=== PATIENT | female | born 1955 | race Two or more races ===

== ENCOUNTER 2020-04-30 11:30 | Outpatient (RCR) | payer MEDICARE, MEDICAID, SELFPAY ==
[2020-04-02 12:37] VITALS: BMI 19.3
--- NOTE | 2020-04-02 12:49 | PC.ADMIT ---
Patient is a 64 year old female who self referred to PHP as she attended PHP in the past and found it helpful. Patient is struggling with depression sxs and increased anxiety with panic attacks d/t isolating because of the pandemic. As a result patient has not been able to work or enjoy the things she used to do such as spend time with friends or visit her daughter or her new grandchild. Patient is waiting for the COVID Vaccine and has a new PCP appointment in April to discuss. Patient denied SI and stated she would never do that. Patient gave verbal permission to email her a copy of her safety plan. Patient presents with depressed mood and anxious affect. Getting used to the new telehealth platform as she stated the last time she was here was when we met in person. Medication reconciled with patient and patient's pharmacy. Patient reports taking medications as prescribed.
--- NOTE | 2020-04-02 16:33 | HO.PS.ADMBH ---
HPI Chief Complaint: depression Sources of Information: patient interviewed and chart reviewed HPI Narrative: 64 yo female, hx of recurrent major depression, presents with increased symptoms of depression and anxiety. Pt identifies precipitant as the pandemic. Reports she has become more fearful of getting COVID and had to leave her work. The quarantine I can no longer stand . Difficulty with isolation which has increased sx of amotivation. Restrictions of the mask have precipitated panic and asthma sx. Pt has a long hx of depression. Previous [facility] PHP admissions where her main coping skills were to not isolate, engage with other and increase activity. The pandemic she reports interfered with all of these and loss of social connection has intensified sx. Of note, one positive event was the of her first grandchild, Elizabeth, on 03/29. She is motivated to manage sx so she may visit him in [place] as soon as possible. Reports a decrease in sleep-she was up all night last night, appetite is unchanged, denies SI plan or intent, no manic sx, denies AH/VH. Daughter has been active in helping pt to trial different activities on zoom, however, pt is not interested currently Past Psychiatric History: IP: Denies OP: Alycia Mccormick-private practice; Dr. Lakhani-psychopharmacology PHP: [facility] 2017, 2018 Trials: several, no current interest in medicine changes. Medical Evaluation Reviewed: Yes [facility] Medical History (Updated 04/02/20 @ 16:49 by Stacy Noe APRN) Asthma Bilateral hearing loss GERD (gastroesophageal reflux disease) Osteoporosis Recurrent major depression-severe Narrative: To attend PT for frozen shoulder. Recently passed five kidney stones Surgical History (Updated 04/02/20 @ 12:32 by Flavia Hogue RN) H/O: hysterectomy Family History: anxiety, PTSD, Depression Social History: lives with her cat. Currently unemployed-will reach out to [facility] for resources Substance History: Denies Trauma History: Yes Diagnostics Vital Signs (24Hr): Body Mass Index 19.3 Meds/Allergies Allergies Allergies Allergy/AdvReac Type Severity Reaction Status Date / Time NSAIDS (Non-Steroidal Allergy Unknown GERD Unverified 11/08/19 17:17 Anti-Inflamma [NSAIDS (NON-STEROIDAL ANTI-INFLAMMA] Penicillins [PENICILLINS] Allergy Unknown HIVES Unverified 11/08/19 17:17 Mental Status Exam Mental Status Exam Patient Appearance: Appropriate Patient Orientation: Person, Place, Time and Situation Level of Consciousness: Awake and Alert Patient Behavior: Appropriate, Talkative, Cooperative, Restless, Anxious, Fatigued and Distractible Mood Description: Depressed and Anxious Affect Description: Flat Patient Cognition Impaired: No Ability to Follow Directions: Good Speech Pattern: Spontaneous Speech Memory Description: Intact Hallucinations: None Delusions: Not Present Thought Process: Intact Thought Content: positive for Intact Depressive Symptoms: Increased Anxiety, Insomnia, Diff. Making Decisions, Muscle Tension, Difficulty Sleeping, Muscle Pain, Loss of Int. in Activity, Hopelessness, Isolating-Friends/Family, Unhappiness, Increased Fatigue, Thoughts of /Suicide (denies SI plan or intent), Low Self Esteem, Loss of Energy and Difficulty Concentrating Abnormal Motor Activity Signs and Symptoms: Restlessness Judgement: Good Assessment & Plan Assessment & Plan (1) Recurrent major depression-severe: Status: Acute Code(s): F33.2 - Major depressive disorder, recurrent severe without psychotic features Assessment and Plan: -continue current regime Certification I certify that partial hospital treatment is medically necessary due to the symptoms and problems resulting from the patient's mental illness and the failure to treat the patient at the partial hospital level of care would likely result in the patient requiring inpatient psychiatric care which could not be prevented at a less intensive level of care. Telehealth Telehealth Location of provider rendering services: practice address Location of patient: address on file Patient Identification confirmed using: Name, : Yes Telehealth method: video Patient verbally consented to treatment: Yes Patient verbally consented to billing insurance company: Yes Patient informed of any privacy concerns related to visit: Yes Time spent with patient (mins): 35
--- NOTE | 2020-04-03 08:07 | PC.NURSE ---
Pt called and said she will not be able to attend PHP today. She said she has an abscessed tooth and was able to get a dentist appt today at 10:15. She said she will be in tomorrow.
--- NOTE | 2020-04-04 12:28 | PC.NURSE ---
The client called because she can not come today because she had dental surgery yesterday and is in a tremendous amount of pain.
--- NOTE | 2020-04-10 12:29 | HO.PHPPROGNO ---
Subjective Subjective Date of Service: 04/15/20 Reason For Visit: depression Interim History: Suze reports feeling slightly less depressed. She reports some difficulty sleeping for the past month which she attributes to increased depression and racing thoughts due to anxious mood. She reports PHP has been helpful in that she feels less isolated. She also plans to meet her only grandchild soon, which she had not been able to do due to COVID. She has been on same psychotropic medications for some years. She has been taking split dose of prozac. She states this was recommended by her OP psychiatrist to help with anxiety in evening but does not seem to have any effect. We did discuss trying to take full dose Prozac in morning- no pharmacological reason to split dose, and certainly difference that pt has noted. We discussed adding melatonin for sleep- however, pt worried about side effects with any changes in medications. She denied SI/HI. She reports appetite is fair. Medication Compliance: Yes Side effects from medications: No Attending Groups: Yes Mental Status Exam Mental Status Exam Patient Appearance: Appropriate Patient Orientation: Person, Place, Time and Situation Level of Consciousness: Awake and Alert Patient Behavior: Appropriate, Talkative, Cooperative, Restless, Anxious, Fatigued and Distractible Mood Description: Depressed and Anxious Affect Description: Flat Patient Cognition Impaired: No Ability to Follow Directions: Good Speech Pattern: Spontaneous Speech Memory Description: Intact Diagnostics Vital Signs (24Hr): Body Mass Index 19.3 Assessment & Plan Assessment & Plan (1) Recurrent major depression-severe: Status: Acute Code(s): F33.2 - Major depressive disorder, recurrent severe without psychotic features Assessment and Plan: -continue current regime Certification I certify that partial hospital treatment is medically necessary due to the symptoms and problems resulting from the patient's mental illness and the failure to treat the patient at the partial hospital level of care would likely result in the patient requiring inpatient psychiatric care which could not be prevented at a less intensive level of care. Greater than 50% of the session was spent on counseling and/or coordination of care Discharge Plan Discharge Attending provider: Erick Bowling Medications: No Action fluoxetine 10 mg Capsule 10 mg PO BEDTIME RF: 0 lorazepam 1 mg Tablet 1 mg PO DAILY PRN (Reason: Anxiety) RF: 0 albuterol sulfate 90 mcg/actuation Hfa Aerosol Inhaler 2 puff INHALATION Q6H PRN (Reason: Shortness Of Breath) RF: 0 fluoxetine 20 mg Capsule 20 mg PO DAILY RF: 0 bupropion HCl 150 mg Tablet Extended Release 24 Hr 150 mg PO QAM RF: 0 cholecalciferol (vitamin D3) [Vitamin D3] 50 mcg (2,000 unit) Tablet 50 mcg PO DAILY RF: 0 Breo Ellipta 200-25 mcg/dose Blister With Device 1 inh INHALATION DAILY RF: 0 Telehealth Telehealth Location of provider rendering services: practice address Location of patient: address on file Patient Identification confirmed using: Name, : Yes Telehealth method: video Patient verbally consented to treatment: Yes Patient verbally consented to billing insurance company: Yes Patient informed of any privacy concerns related to visit: Yes Time spent with patient (mins): 35
--- NOTE | 2020-04-16 12:13 | PC.NURSE ---
Pt called to report that the first 2 groups were very intense and negative. She felt very triggered by the other patients' suffering . She reported she was safe but she would like to take the day to take care of herself. Asked assigned clinician to reach out to her later in the day. She will return to groups tomorrow.
--- NOTE | 2020-04-16 13:08 | PC.NURSE ---
Pt called staff (Evita Alejandro) to let us know that she is in need of break and will not be returning to group today. I called her and spoke to her after the 3rd group. She said she is okay, and safe. She said she recognized that she was getting overwhelmed with the negativity from peer in the group, and that she had a reaction to their unwillingness to receive feedback or help. She questioned whether some of her peers in group really want to change. We discussed possible ways to cope with and/or communicate these thoughts in the group. Pt was easily able to identify tasks she has planned for today and coping skills, and was able to use some humor.
--- NOTE | 2020-04-16 13:10 | PC.NURSE ---
Patient called to say she needed a break from groups as she stated the first 2 groups were intense and when she tried to be positive other group members continued to be negative and she did not feel others had a good response towards her because of this. Patient stated she may show up for the last group at 1:00 however she may not depending how she is feeling. Patient denied any suicidal thoughts or thoughts to kill or harm herself. Patient ended our call to answer another call from a [employer] number as she thought it was one of the Clinician's calling her back as she left them an earlier message. Clinicians and Evita Hunter the pilot supervisor are aware. Clinician's will reach out to patient later.
--- NOTE | 2020-04-17 20:08 | HO.PHPPROGNO ---
Subjective Subjective Date of Service: 04/17/20 Reason For Visit: depression Interim History: Reports regime to be effective and without SE. Appetite is OK-some missed meals due to being engaged in other activities. Slept seven hours last night the entire night-however, has noticed that she bites her nails in her sleep. Discussed using moisturizing gloves to deter that sx while sleeping. Believes this sx is based in fear from the forced isolation of quarantine. Will attend [facility] until 04/30, then travel to meet her new grandchild. 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 Medication Compliance: Yes Side effects from medications: No Attending Groups: Yes Review of Systems Psychiatric: Reports anxiety Mental Status Exam Mental Status Exam Patient Appearance: Appropriate Patient Orientation: Person, Place, Time and Situation Level of Consciousness: Awake and Alert Patient Behavior: Appropriate Mood Description: Anxious Affect Description: Flat Patient Cognition Impaired: No Ability to Follow Directions: Good Speech Pattern: Spontaneous Speech Hallucinations: None Delusions: Not Present Thought Process: Intact Thought Content: positive for Suicidal Ideation (denies SI plan or intent) Depressive Symptoms: Increased Anxiety, Difficulty Sleeping and Changes in Appetite Judgement: Good Diagnostics Vital Signs (24Hr): Body Mass Index 19.3 Assessment & Plan Assessment & Plan (1) Recurrent major depression-severe: Status: Acute Code(s): F33.2 - Major depressive disorder, recurrent severe without psychotic features Assessment and Plan: -Continue current plan of care. Patient educated on: therapeutic strategies Informed Consent: understands and further education needed Certification I certify that partial hospital treatment is medically necessary due to the symptoms and problems resulting from the patient's mental illness and the failure to treat the patient at the partial hospital level of care would likely result in the patient requiring inpatient psychiatric care which could not be prevented at a less intensive level of care. Greater than 50% of the session was spent on counseling and/or coordination of care Discharge Plan Discharge Attending provider: Erick Bowling Medications: No Action fluoxetine 10 mg Capsule 10 mg PO BEDTIME RF: 0 lorazepam 1 mg Tablet 1 mg PO DAILY PRN (Reason: Anxiety) RF: 0 albuterol sulfate 90 mcg/actuation Hfa Aerosol Inhaler 2 puff INHALATION Q6H PRN (Reason: Shortness Of Breath) RF: 0 fluoxetine 20 mg Capsule 20 mg PO DAILY RF: 0 bupropion HCl 150 mg Tablet Extended Release 24 Hr 150 mg PO QAM RF: 0 cholecalciferol (vitamin D3) [Vitamin D3] 50 mcg (2,000 unit) Tablet 50 mcg PO DAILY RF: 0 Breo Ellipta 200-25 mcg/dose Blister With Device 1 inh INHALATION DAILY RF: 0 Telehealth Telehealth Location of provider rendering services: practice address Location of patient: address on file Patient Identification confirmed using: Name, : Yes Telehealth method: video Patient verbally consented to treatment: Yes Patient verbally consented to billing insurance company: Yes Patient informed of any privacy concerns related to visit: Yes Time spent with patient (mins): 15
--- NOTE | 2020-04-24 14:50 | HO.PHPPROGNO ---
Subjective Subjective Date of Service: 04/24/20 Reason For Visit: depression Interim History: Pt somewhat anxious, especially around any changes to medications. She denies suicidal or homicidal ideation. She reports sleep has been better in that she is not waking up so frequently. She reports depression and anxious mood always there. She reports finding groups helpful. Review of Systems Psychiatric: Reports anxiety Mental Status Exam Mental Status Exam Patient Appearance: Well Grooomed and Appropriate Patient Orientation: Person, Place, Time and Situation Level of Consciousness: Awake and Alert Patient Behavior: Appropriate and Cooperative Mood Description: Anxious Affect Description: Anxious Patient Cognition Impaired: No Ability to Follow Directions: Good Speech Pattern: Clear, Appropriate and Spontaneous Speech Memory Description: Intact Hallucinations: None Delusions: Not Present Thought Process: Linear Thought Content: positive for Intact Judgement: Fair Diagnostics Vital Signs (24Hr): Body Mass Index 19.3 Assessment & Plan Assessment & Plan (1) Recurrent major depression-severe: Status: Acute Code(s): F33.2 - Major depressive disorder, recurrent severe without psychotic features Assessment and Plan: -Continue current plan of care. Certification I certify that partial hospital treatment is medically necessary due to the symptoms and problems resulting from the patient's mental illness and the failure to treat the patient at the partial hospital level of care would likely result in the patient requiring inpatient psychiatric care which could not be prevented at a less intensive level of care. Greater than 50% of the session was spent on counseling and/or coordination of care Discharge Plan Discharge Attending provider: Erick Bowling Medications: No Action fluoxetine 10 mg Capsule 10 mg PO BEDTIME RF: 0 lorazepam 1 mg Tablet 1 mg PO DAILY PRN (Reason: Anxiety) RF: 0 albuterol sulfate 90 mcg/actuation Hfa Aerosol Inhaler 2 puff INHALATION Q6H PRN (Reason: Shortness Of Breath) RF: 0 fluoxetine 20 mg Capsule 20 mg PO DAILY RF: 0 bupropion HCl 150 mg Tablet Extended Release 24 Hr 150 mg PO QAM RF: 0 cholecalciferol (vitamin D3) [Vitamin D3] 50 mcg (2,000 unit) Tablet 50 mcg PO DAILY RF: 0 Breo Ellipta 200-25 mcg/dose Blister With Device 1 inh INHALATION DAILY RF: 0 Telehealth Telehealth Location of provider rendering services: practice address Location of patient: address on file Patient Identification confirmed using: Name, : Yes Telehealth method: video Patient verbally consented to treatment: Yes Patient verbally consented to billing insurance company: Yes Patient informed of any privacy concerns related to visit: Yes Time spent with patient (mins): 15
--- NOTE | 2020-04-30 16:11 | PC.NURSE ---
I called and left a message for pt's therapist at [facility], Alycia Mccormick, informing her about pt's clinical status and discharge from [facility].
== END 2020-04-30 23:55 | disposition home or self-care (01) ==
LOC: HO.PHPA 11:30
PROVIDERS: Visit Provider Psychiatry & Neurology Psychiatry
DX: F33.2 Major depressive disorder, recurrent severe without psychotic features (principal); Z79.899 Other long term (current) drug therapy
CPT/HCPCS: 90791; 90853

== ENCOUNTER 2021-12-17 11:53 | Outpatient (REF) | payer MEDICARE, MEDICAID, SELFPAY ==
--- NOTE | 2021-12-18 12:51 | MHC.AU.AHA ---
Adult Audiological Evaluation Date of Visit: 12/17/21 Reason for Appointment: History of asymmetrical hearing loss. Her left ear has had profound sensorineural hearing loss since childhood. She arrives today to determine if there has been a change in hearing. Previous Hearing Test Results: At this clinic on 11/13/2018: Right ear has mild to moderately-severe sensorineural hearing loss. Left ear has profound sensorineural hearing loss, with no measurable thresholds. Hearing Instrument History- Right Ear: Phonak Bolero B90-M, #[id number] Battery Size: 312 Repair Warranty: 02/07/2020 Loss and Damage Warranty: 02/07/2020 Dispensed By: [facility] Date of Fittin12/23/2016 Hearing Instrument History- Left Ear: Phonak CROS B-312, #[id number] Battery Size: 312 Warranty: 02/06/2018 Loss and Damage Warranty: 02/06/2018 Dispensed By: [facility] Date of Fittin12/23/2016 Otoscopy: Right Ear: Unremarkable Left Ear: Unremarkable Tympanometry: Tympanometry performed due to: To assess integrity of the middle ear system Right Ear: Normal Middle Ear System (Type A) Left Ear: Normal Middle Ear System (Type A) Hearing Evaluation: Transducer(s) Used: Insert Earphones Method: Conventional Audiometry Stimuli Used: Pure Tones Right Ear: Description of Hearing: Mild to moderately-severe sensorineural hearing loss. Speech recognition threshold (SRT) is 35 dBHL. Word discrimination at 70 dBHL (MCL) is 100%. Left Ear: Description of Hearing: Profound sensorineural hearing loss. Could not test SRT or word discrimination in the left ear due to extent of hearing loss. Most Comfortable Level (MCL): 70 dBHL in the right ear. Could not test in the left ear. Comparison: Thresholds in the right ear have slightly decreased. Recommendations: Audiological re-evaluation in one year. See Hearing Aid Evaluation report for more information. Diagnosis: H90.3 Bilateral Sensorineural Hearing Loss Signature: Provider: Good Neely, [facility]
--- NOTE | 2021-12-18 12:54 | MHC.AU.HAS ---
Hearing Aid Evaluation Date of Visit: 12/17/21 Historical Information: Description of Hearing: Right: Mild to moderately-severe sensorineural hearing loss, Left: Profound sensorineural hearing loss Current personal amplification information, if applicable: Right: Phonak Bolero B90-M, Left: Phonak CROS B-312. Obtained 12/23/2016. Summary: Patient was seen today for audiological re-evaluation (see separate report for details). Maintenance was performed on her current hearing instruments. No programming changes made to the instruments today. Patient is working with [facility] ([facility] She will need a set of hearing instruments that can support her auditory needs in everyday life, as well as the workforce. Hearing aid options were discussed. Her new instruments will have Bluetooth, so that they have the ability to be paired to certain Bluetooth-compatible devices, such as phones, tablets, or computers. There will also be a T-coil. In the future, depending on the nature of the workplace, a Phonak Raciel On iN could be beneficial. The Raciel On iN is a device that can be used as a microphone (for meetings, lectures, noisy places, etc) or it can be used to stream audio from non-Bluetooth compatible devices, such as many office phones. If the patient feels a Phonak Raciel On iN would be beneficial to a future workplace, she could discuss this with [facility]. She would benefit from a caption phone. UEN Pimentel CCC-A will be filling out a certification form with [employer]. [facility] will then contact the [facility] directly. Hearing Aid Prescription: Based on the individual?s shared listening needs, communication environments, dexterity, desire for connectivity, and personal preferences, the following prescription for amplification has been made: Right ear: Finishing Range Operator: Phonak Model: Audeo P70-13T Battery Size: 13 Color: P1 Global Security Architect: 0M Left ear: Finishing Range Operator: Phonak Model: CROS P-13 Battery Size: 13 Color: P1 Global Security Architect: Size 0 CROS tube Action Taken/Action Needed: Medical Clearance to be requested from PCP/ENT Hearing Instrument Fitting to be scheduled when materials arrive Primary Diagnosis: H90.3 Bilateral Sensorineural Hearing Loss Signature: Provider: Good Neely, JEANA
--- NOTE | 2021-12-18 12:55 | MHC.AU.MED ---
Medical Clearance for Hearing Instrumentation Date: 12/18/21 Patient Name: Maren Soto Date of : 1955 Referring Provider: JOHN Vaughn We have seen your patient on 12/18/21 and have determined that they are a candidate for amplification (See accompanying report). Specifically, they would benefit from: Hearing aid use in right ear, CROS use in left ear There is a statute that addresses Medical Evaluation Requirements prior to fitting a patient with a hearing aid. According to [place] statute 265 CMR:6.03(1), (a) General. Except as provided in 265 CMR 6.03(1)(b), a hearing healthcare practitioner shall not sell a hearing aid unless the prospective user has presented to the hearing healthcare practitioner a written statement signed by a licensed physician that states that the patient's hearing loss has been medically evaluated and the patient may be considered a candidate for a hearing aid. The medical evaluation must have taken place within the preceding six months. Please note: Due to the [place] Statute referenced above, we cannot accept a signature other than that of a licensed physician. KAROL and PA signatures cannot be accepted. I am in agreement with the above recommendation. There is no medical contraindication for hearing instrumentation. Physician Signature Date Physician Name (Printed)
== END 2021-12-17 11:54 | disposition home or self-care (01) ==
LOC: HO.SH 11:53
PROVIDERS: Visit Provider Physician Assistant Medical
DX: Z01.118 Encounter for examination of ears and hearing with other abnormal findings (principal); Z46.1 Encounter for fitting and adjustment of hearing aid; H90.3 Sensorineural hearing loss, bilateral
CPT/HCPCS: 92557; 92567; 92591

== ENCOUNTER 2022-01-19 08:49 | Outpatient (REF) | payer MEDICARE, MEDICAID, SELFPAY | END 2022-01-19 08:50 | disposition home or self-care (01) | LOC: HO.HAP 08:49 | PROVIDERS: Visit Provider Internal Medicine | DX: Z46.1 Encounter for fitting and adjustment of hearing aid (principal); H90.3 Sensorineural hearing loss, bilateral | CPT/HCPCS: V5011; V5020; V5221; V5240; V5266 ==

== ENCOUNTER 2022-02-02 12:15 | Outpatient (REF) | payer MEDICARE, MEDICAID, SELFPAY | END 2022-02-02 12:16 | disposition home or self-care (01) | LOC: HO.HAP 12:15 | PROVIDERS: Visit Provider Physician Assistant Medical | DX: Z13.89 Encounter for screening for other disorder (principal) ==

== ENCOUNTER 2022-02-08 12:43 | Outpatient (RCR) | payer MEDICARE, MEDICAID, SELFPAY | END 2022-02-08 23:59 | disposition home or self-care (01) | LOC: HO.PHPA 12:43 | PROVIDERS: Visit Provider Psychiatry & Neurology Psychiatry | DX: F33.2 Major depressive disorder, recurrent severe without psychotic features (principal); F43.12 Post-traumatic stress disorder, chronic | CPT/HCPCS: 90791 ==

== ENCOUNTER 2022-03-19 08:30 | Outpatient (RCR) | payer MEDICARE, MEDICAID, SELFPAY ==
[2022-02-18 13:54] VITALS: BP 110/60; PULSE 80; RESP 16; TEMP 36.6
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
[2022-02-19 16:55] VITALS: BMI 17.2
--- NOTE | 2022-02-23 11:09 | PC.ADMIT ---
Patient admit to [facility] on 02/18/2022 with following diagnosis: MDD, recurrent, severe without psychotic features, PTSD, chronic. Patient self referred to [facility] due to her report of increased depression and anxiety. Patient has many admissions to [facility] at [facility] [place] [place] and it has helped in the past Patient denies SI with no plan or intent. Patient is 66 years old and lives alone. Patient reports increasing financial difficulties since she left her job of many years leaving when Covid began due to fear of celina Covid. Patient denies IPLOC, detox/rehab admissions. Patient is seen by a therapist and prescriber through [facility]. All medications are managed by Dr Lakhani. Patient was seen today by EXCAVATING MACHINE OPERATOR. Patient denies substance abuse, states she drinks one glass of wine socially and smokes cannabis socially. Copy of patient Safety Plan given to patient. Medications reconciled with patient and medical record. Nursing assessment completed and charted.
[2022-02-26 13:53] LABS: Amphetamine Screen Urine Not Detected (Not Detect); Barbiturates, Urine Not Detected (Not Detect); Benzodiazepines Screen Urine Not Detected (Not Detect); Cannabinoid Screen Urine Not Detected (Not Detect); Cocaine Screen Urine Not Detected (Not Detect); Fentanyl, urine Not Detected (Not Detect); Opiate Screen Urine Not Detected (Not Detect); Phencyclidine Screen Urine Not Detected (Not Detect)
--- NOTE | 2022-02-26 17:35 | P.PNPSP_ITS ---
Subjective Subjective Date of Service: 02/26/22 Reason For Visit: MDD,PTSD,anxiety Medical Problems Affecting Mental Status: No Interim History: Continues with depressed mood, although feels she is improving. Finding groups to be helpful. No SI, no safety concerns. A satisfied with current medications, not interested in any changes at this time. Medication Compliance: Yes Side effects from medications: No Attending Groups: Yes Review of Systems Acute medical concerns: No Medical Review of Systems: unchanged Review of Systems Review of Systems Yes all other systems are reviewed and are negative Constitutional: Reports no additional constitutional complaints Mental Status Exam Mental Status Exam Narrative: NAD Patient Appearance: Well Grooomed Patient Orientation: Person and Place Level of Consciousness: Appropriate Patient Behavior: Appropriate, Cooperative and Good Eye Contact Mood Description: Depressed and Anxious Affect Description: Appropriate Patient Cognition Impaired: No Ability to Follow Directions: Excellent Speech Pattern: Clear and Appropriate Memory Description: Intact Hallucinations: None Delusions: Not Present Thought Process: Intact Thought Content: positive for Intact Depressive Symptoms: Increased Anxiety, Sleeping More Than Usual and Increased Fatigue Judgement: Good Diagnostics Vital Signs (24Hr): BMI result Body Mass Index 17.2 Labs Labs: Laboratory Results - last 48 hr 02/25/22 09:13 Urine Opiates Screen Not Detected Urine Fentanyl Screen Not Detected Ur Barbiturates Screen Not Detected Ur Phencyclidine Scrn Not Detected Ur Amphetamines Screen Not Detected U Benzodiazepines Scrn Not Detected Urine Cocaine Screen Not Detected U Marijuana (THC) Screen Not Detected Assessment & Plan Assessment & Plan (1) Recurrent major depression-severe: Status: Acute Code(s): F33.2 - Major depressive disorder, recurrent severe without psychotic features Assessment and Plan: Continues with depressed mood, although she reports that she feels she is improving somewhat. Finding groups helpful. Affect bright when speaking about her family, and her grandson. Satisfied with current medications, does not want any changes. Plan 1. Continue with current [facility] plan of care. 2. Continue with medications as prescribed by outpatient psychiatrist. 3. Follow-up as per protocol. Patient educated on: diagnosis, medication risk/benefits and therapeutic strategies Informed Consent: understands Reason for contiued partial hosp. stay Substantial Risk for: inability to function and rapid decompensation Certification I certify that partial hospital treatment is medically necessary due to the symptoms and problems resulting from the patient's mental illness and the failure to treat the patient at the partial hospital level of care would likely result in the patient requiring inpatient psychiatric care which could not be prevented at a less intensive level of care. Total time managing care of this patient today __20__ minutes. Discharge Plan Discharge Attending provider: Blaise Anne Medications: No Action fluoxetine 10 mg Capsule 10 mg PO BEDTIME lorazepam 1 mg Tablet 1 mg PO DAILY PRN (Reason: Anxiety) albuterol sulfate 90 mcg/actuation Hfa Aerosol Inhaler 2 puff INHALATION Q6H PRN (Reason: Shortness Of Breath) fluoxetine 20 mg Capsule 20 mg PO DAILY bupropion HCl 150 mg Tablet Extended Release 24 Hr 150 mg PO QAM cholecalciferol (vitamin D3) [Vitamin D3] 50 mcg (2,000 unit) Tablet 50 mcg PO DAILY fluticasone furoate-vilanterol [Breo Ellipta] 200-25 mcg/dose Blister With Device 1 inh INHALATION DAILY fluticasone propionate 50 mcg/actuation spray,suspension 2 spray intranasal DAILY
--- NOTE | 2022-03-04 16:56 | P.PNPSP_ITS ---
Subjective Subjective Date of Service: 03/04/22 Reason For Visit: MDD,PTSD,anxiety Medical Problems Affecting Mental Status: No Interim History: Describes mood as ok . Has been losing weight. Reports her normal weight is 102-103, current weight is 89 lb. Reports that is due to poor appetite, r/t depression. No SI, no safety concerns. Finding groups helpful. Satisfied with current medications, does not want any changes. Medication Compliance: Yes Side effects from medications: No Attending Groups: Yes Review of Systems Acute medical concerns: No Medical Review of Systems: unchanged Review of Systems Review of Systems weight loss of 13 pounds over past 6 months Yes all other systems are reviewed and are negative Constitutional: Reports poor appetite Mental Status Exam Mental Status Exam Narrative: NAD Patient Appearance: Well Grooomed Patient Orientation: Person, Place, Time and Situation Level of Consciousness: Appropriate Patient Behavior: Appropriate, Cooperative and Good Eye Contact Mood Description: Depressed and Anxious Affect Description: Appropriate Patient Cognition Impaired: No Ability to Follow Directions: Excellent Speech Pattern: Clear and Appropriate Memory Description: Intact Hallucinations: None Delusions: Not Present Thought Process: Intact Thought Content: positive for Intact Depressive Symptoms: Increased Anxiety, Changes in Appetite (decreased), Sleeping More Than Usual, Significant Weight Loss (13 pounds over past 6 months) and Increased Fatigue Judgement: Fair Diagnostics Vital Signs (24Hr): BMI result Body Mass Index 17.2 Assessment & Plan Assessment & Plan (1) Recurrent major depression-severe: Status: Acute Code(s): F33.2 - Major depressive disorder, recurrent severe without psychotic features Assessment and Plan: Continues with depressed mood. Satisfied with current medications, not interested in any changes. Has been losing weight over past 6 months due to poor appetite, related to depression. This display card writer suggested she follow-up with her medical provider. Not interested in seeing her medical provider. No SI, no safety concerns. Finding groups helpful. Denies any concerns at this time. Plan 1. Continue with [facility] plan of care. 2. Obtain labs. 3. Follow-up as per protocol. Patient educated on: diagnosis, medication risk/benefits and therapeutic strategies Informed Consent: understands Reason for contiued partial hosp. stay Substantial Risk for: inability to function, rapid decompensation and med/psych decompensation Certification I certify that partial hospital treatment is medically necessary due to the symptoms and problems resulting from the patient's mental illness and the failure to treat the patient at the partial hospital level of care would likely result in the patient requiring inpatient psychiatric care which could not be prevented at a less intensive level of care. Total time managing care of this patient today __20__ minutes. Discharge Plan Discharge Attending provider: Blaise Anne Medications: No Action fluoxetine 10 mg Capsule 10 mg PO BEDTIME lorazepam 1 mg Tablet 1 mg PO DAILY PRN (Reason: Anxiety) albuterol sulfate 90 mcg/actuation Hfa Aerosol Inhaler 2 puff INHALATION Q6H PRN (Reason: Shortness Of Breath) fluoxetine 20 mg Capsule 20 mg PO DAILY bupropion HCl 150 mg Tablet Extended Release 24 Hr 150 mg PO QAM cholecalciferol (vitamin D3) [Vitamin D3] 50 mcg (2,000 unit) Tablet 50 mcg PO DAILY fluticasone furoate-vilanterol [Breo Ellipta] 200-25 mcg/dose Blister With Device 1 inh INHALATION DAILY fluticasone propionate 50 mcg/actuation spray,suspension 2 spray intranasal DAILY
--- NOTE | 2022-03-11 13:12 | HO.PHPPROGNO ---
Subjective Subjective Date of Service: 03/11/22 Reason For Visit: MDD,PTSD,anxiety Medical Problems Affecting Mental Status: No Interim History: Continues with depressed mood, affect. No SI, no safety concerns. No medication concerns. Medication Compliance: Yes Side effects from medications: No Attending Groups: Yes Review of Systems Acute medical concerns: No Medical Review of Systems: unchanged Review of Systems Review of Systems Yes all other systems are reviewed and are negative Constitutional: Reports no additional constitutional complaints Mental Status Exam Mental Status Exam Narrative: NAD Patient Appearance: Well Grooomed Patient Orientation: Person, Place, Time and Situation Level of Consciousness: Appropriate Patient Behavior: Appropriate, Cooperative and Good Eye Contact Mood Description: Depressed Affect Description: Appropriate Patient Cognition Impaired: No Ability to Follow Directions: Excellent Speech Pattern: Clear and Appropriate Memory Description: Intact Hallucinations: None Delusions: Not Present Thought Process: Intact Thought Content: positive for Intact Depressive Symptoms: Increased Anxiety, Changes in Appetite (decreased), Sleeping More Than Usual, Significant Weight Loss (13 pounds over past 6 months) and Increased Fatigue Judgement: Fair Diagnostics Vital Signs (24Hr): BMI result Body Mass Index 17.2 Assessment & Plan Assessment & Plan (1) Recurrent major depression-severe: Status: Acute Code(s): F33.2 - Major depressive disorder, recurrent severe without psychotic features Assessment and Plan: Continues with depressed mood, denies any real improvement at this time. Not interested in any medication changes, she does not want to go through beginning phase dealing with titration up to adequate dose. No SI, no safety concerns. Attending groups. Finding them helpful, except for size, reports she wishes they were smaller. Plan 1. Continue with current [facility] plan of care. 2. Continue with current medications as prescribed by outpatient provider. 3. Follow-up as per protocol. Patient educated on: diagnosis, medication risk/benefits and therapeutic strategies Informed Consent: understands Reason for contiued partial hosp. stay Substantial Risk for: inability to function and rapid decompensation Certification I certify that partial hospital treatment is medically necessary due to the symptoms and problems resulting from the patient's mental illness and the failure to treat the patient at the partial hospital level of care would likely result in the patient requiring inpatient psychiatric care which could not be prevented at a less intensive level of care. Total time managing care of this patient today __20__ minutes. Discharge Plan Discharge Attending provider: Blaise Anne Medications: No Action fluoxetine 10 mg Capsule 10 mg PO BEDTIME lorazepam 1 mg Tablet 1 mg PO DAILY PRN (Reason: Anxiety) albuterol sulfate 90 mcg/actuation Hfa Aerosol Inhaler 2 puff INHALATION Q6H PRN (Reason: Shortness Of Breath) fluoxetine 20 mg Capsule 20 mg PO DAILY bupropion HCl 150 mg Tablet Extended Release 24 Hr 150 mg PO QAM cholecalciferol (vitamin D3) [Vitamin D3] 50 mcg (2,000 unit) Tablet 50 mcg PO DAILY fluticasone furoate-vilanterol [Breo Ellipta] 200-25 mcg/dose Blister With Device 1 inh INHALATION DAILY fluticasone propionate 50 mcg/actuation spray,suspension 2 spray intranasal DAILY Stand Alone Forms: Patient Portal Discharge page Patient Education: Depression (DC)
--- NOTE | 2022-03-15 14:00 | PC.NURSE ---
Suze called stating she has been trying to get a hold of her prescriber Dr. Lakhani to refill her prescriptions however she stated she is unable to get a hold of him. Patient was crying and anxious and did not know what to do. Stated she has been out of her Bupropion, Fluoxetine, and Ativan since Tuesday. I told her I would let Jessie Garcia BLEACHING MACHINE OPERATOR know and will refill them for her. Payton Burns CNP aware of the aforementioned information. Medications refilled. Spoke to patient's pharmacy and they stated her medications will be ready in one hour. I spoke to Suze and let her know. She was thankful and stated she did not know we could refill her medications for her if needed while she is in the program.
--- NOTE | 2022-03-17 13:50 | HO.PHPIOP ---
The client called out due to the upcoming snow today . She is fearful of traveling in the snow
--- NOTE | 2022-03-18 11:30 | HO.PHPPROGNO ---
Subjective Subjective Date of Service: 03/18/22 Reason For Visit: MDD,PTSD,anxiety Medical Problems Affecting Mental Status: No Interim History: Describes mood as ?okay ?. Reports had a difficult weekend, had run out of medications unable to get refill right away. Feels stable, less depressed. No SI, no safety concerns. Feels ready for discharge from [facility] tomorrow. Has found program helpful. Medication Compliance: Yes Side effects from medications: No Attending Groups: Yes Review of Systems Acute medical concerns: No Medical Review of Systems: unchanged Review of Systems Review of Systems Yes all other systems are reviewed and are negative Constitutional: Reports no additional constitutional complaints Mental Status Exam Mental Status Exam Narrative: NAD Patient Appearance: Well Grooomed Patient Orientation: Person, Place, Time and Situation Level of Consciousness: Appropriate Patient Behavior: Appropriate, Cooperative and Good Eye Contact Mood Description: Depressed (improving) Affect Description: Appropriate Patient Cognition Impaired: No Ability to Follow Directions: Excellent Speech Pattern: Clear and Appropriate Memory Description: Intact Hallucinations: None Delusions: Not Present Thought Process: Intact Thought Content: positive for Intact Depressive Symptoms: Increased Anxiety Judgement: Good Diagnostics Vital Signs (24Hr): BMI result Body Mass Index 17.2 Assessment & Plan Assessment & Plan (1) Recurrent major depression-severe: Status: Acute Code(s): F33.2 - Major depressive disorder, recurrent severe without psychotic features Assessment and Plan: No SI, no safety concerns. Less depressed. Feels stable, ready for discharge tomorrow from [facility]. Has follow-up appointment with her outpatient psychiatrist on April 01. Continues job search. Plan 1. Patient appears stable for discharge from [facility] tomorrow. 2. One month supply of medications had been sent to pharmacy earlier in week. 3. Patient to follow-up with outpatient providers going forward. Patient educated on: diagnosis, medication risk/benefits and therapeutic strategies Guardian/Caregiver educated on: diagnosis Informed Consent: understands Reason for contiued partial hosp. stay Substantial Risk for: stable for discharge Certification I certify that partial hospital treatment is medically necessary due to the symptoms and problems resulting from the patient's mental illness and the failure to treat the patient at the partial hospital level of care would likely result in the patient requiring inpatient psychiatric care which could not be prevented at a less intensive level of care. Total time managing care of this patient today __20__ minutes. Discharge Plan Discharge Attending provider: Blaise Anne Medications: New bupropion HCl [Wellbutrin XL] 150 mg tablet extended release 24 hr 150 mg PO QAM Qty: 30 0RF fluoxetine 20 mg capsule 20 mg PO DAILY Qty: 30 0RF fluoxetine 10 mg capsule 10 mg PO DAILY Qty: 30 0RF lorazepam 1 mg tablet 1 mg PO DAILY PRN (Reason: anxiety) Qty: 30 0RF Discontinued fluoxetine 10 mg Capsule 10 mg PO BEDTIME lorazepam 1 mg Tablet 1 mg PO DAILY PRN (Reason: Anxiety) fluoxetine 20 mg Capsule 20 mg PO DAILY bupropion HCl 150 mg Tablet Extended Release 24 Hr 150 mg PO QAM No Action albuterol sulfate 90 mcg/actuation Hfa Aerosol Inhaler 2 puff INHALATION Q6H PRN (Reason: Shortness Of Breath) cholecalciferol (vitamin D3) [Vitamin D3] 50 mcg (2,000 unit) Tablet 50 mcg PO DAILY fluticasone furoate-vilanterol [Breo Ellipta] 200-25 mcg/dose Blister With Device 1 inh INHALATION DAILY fluticasone propionate 50 mcg/actuation spray,suspension 2 spray intranasal DAILY Stand Alone Forms: Patient Portal Discharge page Patient Education: Depression (DC)
--- NOTE | 2022-03-19 15:43 | HO.PHPIOP ---
I left a message with the clients therapist Alycia birch clients dc from the program
== END 2022-03-19 23:59 | disposition home or self-care (01) ==
LOC: HO.PHPA 08:30
PROVIDERS: Nurse Practitioner Psychiatric/Mental Health; Visit Provider Psychiatry & Neurology Psychiatry
DX: F33.2 Major depressive disorder, recurrent severe without psychotic features (principal); Z79.899 Other long term (current) drug therapy
CPT/HCPCS: 80307; 90791; 90853

== ENCOUNTER 2023-01-20 16:23 | Outpatient (REF) | payer MEDICARE, MEDICAID, SELFPAY | END 2023-01-20 16:24 | disposition home or self-care (01) | LOC: HO.HAP 16:23 | PROVIDERS: Visit Provider Internal Medicine | DX: Z46.1 Encounter for fitting and adjustment of hearing aid (principal); H90.3 Sensorineural hearing loss, bilateral | CPT/HCPCS: V5266 ==

== ENCOUNTER 2023-06-24 09:25 | Outpatient (REF) | payer MEDICARE, MEDICAID, SELFPAY | END 2023-06-24 09:26 | disposition home or self-care (01) | LOC: HO.SH 09:25 | PROVIDERS: PCP Nurse Practitioner Family; Visit Provider Nurse Practitioner Family | DX: Z01.118 Encounter for examination of ears and hearing with other abnormal findings (principal); Z46.1 Encounter for fitting and adjustment of hearing aid; H90.3 Sensorineural hearing loss, bilateral | CPT/HCPCS: 92557; 92593; 99499; V5266 ==

== ENCOUNTER 2024-04-25 10:53 | Outpatient (REF) | payer MEDICARE, MEDICAID, SELFPAY ==
--- OUTSIDE RECORDS SUMMARY | 2024-04-25 13:13 | XMS_ITS | Encounter Summary ---
Author Organization [facility] Address [address] [place] [address] [address] [place] [address] Care Team Providers Care Procurement Services Manager Name Role Phone Unavailable Primary Care Provider Unavailabl e Encounter Details Date Type Department Care Team (Latest Contact Info) Description 09/08/2018 Abstract [facility] CONVERSIONS Dental, Provider, DDS Social History Tobacco Use Types Packs/Day Years Used Date Smoking Tobacco: Never Assessed Comments Unknown Sex and Gender Information Value Date Recorded Sex Assigned at Female 12/21/2021 10:24 AM EDT Legal Sex Female 10:24 AM EDT Gender Identity Female 12/21/2021 10:24 AM EDT Sexual Orientation Straight 12/21/2021 10 :24 AM EDT documented as of this encounter Plan of Treatment Not on file documented as of this encounter Visit Diagnoses Not on filedocumented in this encounter
--- OUTSIDE RECORDS SUMMARY | 2024-04-25 13:13 | XMS_ITS | Clinical Summary ---
Author Organization [facility] Address [address] [place] [address] Care Team Providers Care Test Engine Operator Name Role Phone Unavailable Primary Care Provider Unavailabl e Source Comments PLEASE NOTE, if this patient is a minor, it may be UNLAWFUL to discuss sensitive information that is contained in these records (such as FAMILY PLANNING, MENTAL HEALTH or SUBSTANCE ABUSE) with the minor patient's parent or other person without the patient's specific authorization.[facility] Medications pimecrolimus (ELIDEL) 1 % creamIndication s:Atopic dermatitis Apply topically 2 (two) times daily. Apply as a thin film. 30 g 1 5 Active Social History Tobacco Use Types Packs/Day Years Used Date Smoking Tobacco: Never Assessed Social Connections Answer Date Recorded Social Connections and Isolation 0 10/15/2018 Financial Resource Strain Answer Date R ecorded Financial Resource Strain 0 2018 Stress Answer Date Recorded Stress 0 10/15/2018 Physical Activity Answer Date Recorded Physical Activity 0 10/15/2018 Food Insecurity Answer Date Recorded Food 0 10/15/2018 Transportation Needs Answer Date Record ed Transportation 0 10/15/2018 Housing Stability Answer Date Recorded Housing 0 10/15/2018 Safety and Environment Answer Date Daniel rded Safety 0 10/15/2018 Utilities Answer Date Recorded Utilities 0 10/15/2018 Employment Answer Date Recorded Employment 0 10/15/2018 Comments Unknown Sex and Gender Information Value Date Recorded Sex Assigned at Not on file Legal Sex Female 8:44 AM PDT Gender Identity Not on file Sexual Orientation Not on file Plan of Treatment Not on file Insurance [employer] [facility] Member Subscriber Plan / Payer (Ef fective 2014-Present) Name:Maren Soto Relation to Subscriber:Self Name:Maren Soto Payer ID:[id number] Group ID:Not on file Type:Indemnity Address: [address] [place], [place] [id number]
--- OUTSIDE RECORDS SUMMARY | 2024-04-25 13:13 | XMS_ITS | Encounter Summary ---
Author Organization [facility] Address [address] [place] [address] 7 [place] [address] Care Team Providers Care Engineering Manager Electronics Name Role Phone Unavailable Primary Care Provider Unavailabl e Encounter Details Date Type Department Care Team (Late st Contact Info) Description 01/21/2023 Abstract [facility] ADULT DENTAL [address] [place], [place] [phone] Jude Loomis DDS [address] [place], [place] [phone] Social History Tobacco Use Types Packs/Day Years [...]
--- OUTSIDE RECORDS SUMMARY | 2024-04-25 13:13 | XMS_ITS | Encounter Summary ---
Author Organization [facility] Address [address] [place] [address] 7 [place] [address] Care Team Providers Care Trucker Name Role Phone Unavailable Primary Care Provider Unavailabl e Reason for Visit * Reason Comments Dental Exam Patient presents tod ay for eval of lesion Fabiana WEIGHT CLERK Encounter Details Date Type Department Care Team ([facility] st Contact Info) Description 04/25/2024 10:30 AM EST Office Visit [facility] ADULT DENTAL [address] [place] [address] Greyson Tarango DMD [address] [place] [address] History of ulceration (Primary Dx) Social History Tobacco Use Types Packs/Day Years Used Date Smoking Tobacco: Former Cigarettes Smokeless Tobacco: Former Alcohol Use Standard Drinks/Week Comments Never 0 (1 standard drink = 0.6 oz pur e alcohol) Comments Unknown Sex and Gender Information Value Date Recorded Sex Assigned at Female 12/21/2021 10:24 AM EDT Legal Sex Female 10:24 AM EDT Gender Identity Female 12/21/2021 10:24 AM EDT Sexual Orientation Straight 12/21/2021 10 :24 AM EDT documented as of this encounter Progress Notes * Greyson Tarango DMD - 04/25/2024 10:30 AM EST Dental procedures in this visit D9999 - NO CHARGE VISIT (Completed) Service provider: Greyson Tarango DMD Billing provider: Greyson Tarango DMD [id number] - CASE PRESENTATION, DETAILED AND EXTENSIVE TREATMENT PLANNING (Completed) Service provider: Greyson Tarango DMD Billing provider: Greyson Tarango DMD Patient ID: Maren Soto is a 68 y.o. female. Time Out: Timeout Date: 04/25/24, Timeout Time: 1016 (EVAL Lesion) Location: [facility] Tooth: Maxilla Procedure: Exam Verified the above with patient, assistant teacher, and provider. Confirmed via patient's chart, intraorally and by radiographs. Marketing Segment Manager: not applicable Chief Complaint Patient presents with Dental Exam Patient presents today for eval of lesion Fabiana SELLERS Medical Hx: Vitals: There were no vitals taken for this visit. HPI: palatal lesion noted on 04/16, pt in office for re-evaluation Presently no clinical sign of lesion. Pt notes symptoms have subsided Recommendations: continue to monitor, but no further treatment or referral advised at this time Pt notes rough area on #5 previously restored. Smoothed area with white stone until pt confirmed improvement Patient tolerated procedure well. All questions answered. Dismissed in good condition. NV: continue restos Wood Tank Builder: Fabiana Tapia Dentist: Greyson Tarango DMD documented in this encounter Plan of Treatment Not on file documented as of this encounter Procedures Procedure Name Priority Date/Time Associated Diagnosis Comments NO CHARGE VISIT Routine 04/25/2024 10:30 AM EST History of ulceration CASE PRESENTATION, DETAILED AND EXTENSIVE TREATMENT PLANNING Routine 04/25/2024 10:30 AM EST History of ulceration documented in this encounter Visit Diagnoses Diagnosis History of ulceration- Primary documented in this encounter
--- OUTSIDE RECORDS SUMMARY | 2024-04-25 13:13 | XMS_ITS | Clinical Summary ---
Author Organization [email or web address] Address [address] [facility] [address] [place] [address] Care Team Providers Care Supervisor Yard Name Role Phone Unavailable Primary Care Provider Unavailabl e Allergies Active Allergy Reactions Criticality Noted Date Comments Penicillins Anaphylaxis,Hives High 01/17/2018 Medications albuterol (2.5 MG/3ML) 0.083% nebulizer solution 05/03/19 24 Active buPROPion XL (Wellbutrin XL) 150 MG 24 hr tablet Take 150 mg by mouth in the morning. Active FLUoxetine (PROzac) 10 MG capsule Take 10 mg by mouth Once per day. Active FLUoxetine (PROzac) 20 MG capsule Take 20 mg by mouth Once per day. Active fluticasone (Flonase) 50 MCG/ACT nasal spray Administer into affected nostril(s). 12/12/19 21 Active gabapentin (Neurontin) 100 MG capsule TAKE 1 TO 3 CAPSULES BY MOUTH DAILY AT BEDTIME 05/10/19 24 Active LORazepam (Ativan) 1 MG tablet Take 1 mg by mouth if needed each day. Active montelukast (Singulair) 10 MG tablet Take 10 mg by mouth. 03/29/19 23 Active atorvastatin (Lipitor) 10 MG tablet Take 10 mg by mouth Once per day. 11/11/19 24 Active Sodium Fluoride 1.1 % creamIndications:Den genesis caries,Dentin hypersensitivity [place] teeth for 2 minutes, morning and night. Spit, do not rinse. Do not eat or drink anything for 30 minutes following use. 112 g 3 12/09/19 24 Active chlorhexidine (Peridex) 0.12 % solutionIndications: Periodontal disease Swish 15 mL morning and night for 1 minute. Spit, do not swallow. Do not eat or drink for 30 minutes following use. 473 mL 04/16/19 25 Active Active Problems Problem Noted Date Diagnosed Date Allergic rhinitis 09/14/2023 Asthma 09/14/2023 Family history of diabetes mellitus 09/14/2023 Family history of hypertension 09/14/2023 Fibrocystic disease of breast 09/14/2023 Gastroesophageal reflux disease 09/14/2023 Hamstring tendonitis of right thigh 09/14/2023 Left hip pain 09/14/2023 Lumbar back pain with radicu lopathy affecting right lower extremity 09/14/2023 Neural foraminal stenosis of lumbar spine 2023 Numbness and tingling of lower extremity 024 Osteoporosis 09/14/2023 Anxiety and depression 09/14/2023 PTSD (post-traumatic stress disorder) 09/14/2023 Aortic calcification 09/14/2023 Raynaud's syndrome 09/14/2023 Status post partial hysterectomy 09/14/2023 Tobacco user 09/14/2023 Underweight 09/14/2023 Urine incontinence 09/14/2023 Vitamin D deficiency 09/14/2023 Dental abscess 12/21/2021 Encounters Date Type Department Care Team Description 04/25/2024 10:30 AM EST Office Visit [facility]ULT D[facility] [address] [place] [address] Greyson Tarango DMD History of ulceration (Primary Dx) 04/16/2024 9:00 AM EST Office Visit [facility] [address] [place] [address] Greyson Tarango DMD Dental caries (Primary Dx); Periodontal disease 03/16/2024 11:30 AM EST Office Visit [facility] [address] [place] [address] Greyson Tarango DMD Full coverage crown needed for root canal-treated tooth (Primary Dx) 03/14/2024 1:00 PM EST Office Visit [facility] [address] [place] [address] Greyson Tarango DMD Dental church aesthetically inadequate or displeasing (Primary Dx) 02/28/2024 3:00 PM EST Office Visit [facility] [address] [place] [address] Greyson Tarango DMD Full coverage crown needed for root canal-treated tooth (Primary Dx) 02/07/2024 9:30 AM EST Office Visit [facility] [address] [place] [address] Greyson Tarango DMD Full coverage crown needed for root canal-treated tooth (Primary Dx); Dental caries from Last 3 Months Social History Tobacco Use Types Packs/Day Years Used Date Smoking Tobacco: Former Cigarettes Smokeless Tobacco: Former Tobacco Cessation:Counseling Given: Not Answered Alcohol Use Standard Drinks/Week Comments Never 0 (1 standard drink = 0.6 oz pur e alcohol) Comments Unknown Sex and Gender Information Value Date Recorded Sex Assigned at Female 12/21/2021 10:24 AM EDT Legal Sex Female 10:24 AM EDT Gender Identity Female 12/21/2021 10:24 AM EDT Sexual Orientation Straight 12/21/2021 10 :24 AM EDT Last Filed Vital Signs Vital Sign Reading Time Taken Comments Blood Pressure 118/76 04/16/2024 8:58 AM EST Pulse 60 12/09/2023 11:19 AM EDT Temperature - - Respiratory Rate - - Oxygen Saturation - - Inhaled Oxygen Concentration - - Weight - - Height - - Body Mass Index - - Plan of Treatment Health Maintenance Due Date Last Done Comments CT Colonography 1957 Colonoscopy 1957 Colorectal Cancer Screening 1957 Depression Screening 1957 FIT DNA/Cologuard 1957 FIT 1957 FOBT 1957 Lipid Panel 1957 SDOH Screening 1957 Sigmoidoscopy 1957 Alcohol/Substance Use Screening 1969 Hepatitis C Screening 08/08/1975 Mammogram 1997 Pneumococcal Vaccine: 50+ Years (2 of 2 - PCV) 10/29/2007 10/28/2006 DTaP/Tdap/Td Vaccines (1 - Tdap) 07/21/2012 07/20/2012, 12/20/2005, 09/04/1995 RSV Patients and Patients Aged 60 years or older (1 - Risk 60-74 years 1-dose series) 2017 Dental Oral Exam 06/09/2024 12/09/2023, 09/08/2018 Dental Prophylaxis 06/09/2024 12/09/2023, 0 03/16/2019, 09/08/2018 Dental X-Ray: Bitewings 12/09/2024 12/09/2023, 09/08 Tobacco Screening 04/25/2025 04/25/2024 Dental X-Ray: Full Mouth 12/09/2026 12/09/2023, 08/21 Zoster Vaccines Completed 01/10/2022, 10/16/2021 COVID-19 Vaccine Completed 10/19/2023, , 09/03/2021, Additional history exists Influenza Vaccine Completed 01/22/2024, , 11/29/2021, Additional history exists HIB Vaccines Aged Out No longer eligi ble based on patient's age to complete this topic HPV Vaccines Aged Out No longer eligi ble based on patient's age to complete this topic Hepatitis A Vaccines Aged Out No long er eligible based on patient's age to complete this topic Hepatitis B Vaccines Aged Out No long er eligible based on patient's age to complete this topic IPV Vaccines Aged Out No longer eligi ble based on patient's age to complete this topic Meningococcal Vaccine Aged Out No jonas archana eligible based on patient's age to complete this topic RSV under 20 months Aged Out No longe r eligible based on patient's age to complete this topic Rotavirus Vaccines Aged Out No longer eligible based on patient's age to complete this topic Procedures Procedure Name Priority Date/Time Associated Diagnosis Comments CASE PRESENTATION, DETAILED AND EXTENSIVE TREATMENT PLANNING Routine 04/25/2024 10:30 AM EST History of ulceration NO CHARGE VISIT Routine 04/25/2024 10:30 AM EST History of ulceration CASE PRESENTATION, DETAILED AND EXTENSIVE TREATMENT PLANNING Routine 04/16/2024 9:00 AM EST Dental caries 4 DO RESIN-BASED COMPOSITE - 2 SURF, POSTERIOR Routine 04/16/2024 9:00 AM EST Dental caries 5 MOD RESIN-BASED COMPOSITE - 3 SURF, POSTERIOR Routine 04/16/2024 9:00 AM EST Dental caries CASE PRESENTATION, DETAILED AND EXTENSIVE TREATMENT PLANNING Routine 03/16/2024 11:30 AM EST Full coverage crown needed for root canal-treated tooth 12 CROWN - PORCELAIN/CERAMIC Routine 03/16/2024 11:30 AM EST Full coverage crown needed for root canal-treated tooth CASE PRESENTATION, DETAILED AND EXTENSIVE TREATMENT PLANNING Routine 03/14/2024 1:00 PM EST Dental church aesthetically inadequate or displeasing NO CHARGE VISIT Routine 03/14/2024 1:00 PM EST Dental church aesthetically inadequate or displeasing CASE PRESENTATION, DETAILED AND EXTENSIVE TREATMENT PLANNING Routine 02/28/2024 3:00 PM EST Full coverage crown needed for root canal-treated tooth 12 CROWN PREP Routine 02/28/2024 3:00 PM EST Full coverage crown needed for root canal-treated tooth CASE PRESENTATION, DETAILED AND EXTENSIVE TREATMENT PLANNING Routine 02/07/2024 9:30 AM EST Full coverage crown needed for root canal-treated tooth Dental caries 13 D RESIN-BASED COMPOSITE - 1 SURF, POSTERIOR Routine 02/07/2024 9:30 AM EST Dental caries 12 CORE BUILDUP, INCL ANY PINS WHEN REQ Routine 02/07/2024 9:30 AM EST Full coverage crown needed for root canal-treated tooth 12 RETREATMENT OF PREVIOUS ROOT CANAL THERAPY - PREMOLAR Routine 02/07/2024 12:00 AM EST PROPHYLAXIS - ADULT Routine 12/09/2023 1 1:00 AM EDT Dental calculus Dental caries Dentin hypersensitivity Periodontal disease INTRAORAL - COMPLETE SERIES OF RADIOGRAPHIC IMAGES Routine 12/09/2023 11:00 AM EDT Dental calculus Dental caries Dentin hypersensitivity Periodontal disease PERIODIC ORAL EVALUATION - ESTABLISHED PATIENT Routine 12/09/2023 11:00 AM EDT Dental calculus Dental caries Dentin hypersensitivity Periodontal disease from Last 3 Months or Most Recently Relevant to Health Maintenance Insurance [facility] [employer] [place] AD[place]
--- OUTSIDE RECORDS SUMMARY | 2024-04-25 13:13 | XMS_ITS | Encounter Summary ---
Author Organization [facility] Address [address] [place] [address] 7 [place] [address] Care Team Providers Care Factory Process Workers Name Role Phone Unavailable Primary Care Provider Unavailabl e Reason for Visit * Reason Comments Filling Patient presents tod ay for fillings Fabiana SELLERS Encounter Details Date Type Department Care Team ([facility] st Contact Info) Description 04/16/2024 9:00 AM EST Office Visit [facility] ADULT DENTAL [address] [place], [place] [phone] Greyson Tarango, SHERIF [address] [place] [address] Dental caries (Primary Dx); Periodontal disease Social History Tobacco Use Types Packs/Day Years [...] AM EDT documented as of this encounter Last Filed Vital Signs Vital Sign Reading Time Taken Comments Blood Pressure 118/76 04/16/2024 8:58 AM EST Pulse - - Temperature - - Respiratory Rate - - Oxygen Saturation - - Inhaled Oxygen Concentration - - Weight - - Height - - Body Mass Index - - documented in this encounter Progress Notes * Greyson Tarango DMD - 04/16/2024 9:00 AM EST Patient ID: Maren Soto is a 68 y.o. female. Time Out: Timeout Date: 04/16/24, Timeout Time: 925 (TERESO #5) Location: [facility] Tooth: #4 and #5 Procedure: Mu-Ism Verified the above with patient, mobile sales assistant, and provider. Confirmed via patient's chart, intraorally and by radiographs. Owner Professional Engineer: not applicable Chief Complaint Patient presents with Filling Patient presents today for fillings Fabiana SELLERS Medical Hx: Vitals: Blood pressure 118/76. Medications, Med Hx reviewed with patient and updated in chart. Consent Obtained: The risks, benefits, indications, potential complications, and alternatives were explained to the patient and informed consent was obtained with good understanding. Treatment Provided: Dental procedures in this visit D2393 - RESIN-BASED COMPOSITE - 3 SURF, POSTERIOR 5 MOD (Completed) Service provider: Greyson Tarango DMD Billing provider: Greyson Tarango DMD D2392 - RESIN-BASED COMPOSITE - 2 SURF, POSTERIOR 4 DO (Completed) Service provider: Greyson Tarango DMD Billing provider: Greyson Tarango DMD [id number] - CASE PRESENTATION, DETAILED AND EXTENSIVE TREATMENT PLANNING (Completed) Service provider: Greyson Tarango DMD Billing provider: Greyson Tarango DMD Discussion: Pt reports on 03/19/24 she was admitted to the hospital for 4 days due to collapsed lung Pt had catheter placed and removed prior to discharge Pt states no other surgery occurred, and she is not on any new medications Pt had CT scan last week and PCP informed her there is nothing of concern Pt states due to this hospital stay, she did not go to her apicoectomy appt Pt states she will contact the header dock and see if she can be rescheduled - stressed importance of going forward with apico or she will lose #11 Pt also notes a palatal lesion for the last 4 days and notes sensitivity in this area Exam: center of palate on valerie - ulceration about 2 mm in diameter, erythematous border and yellowish center, sensitive to palpation Pt denies eating anything sharp or crunchy, denies burning palate Pt has hx of smoking Recommend she return next week to re-evaluate. If still present and not improving[facility] and #5-MOD decay into dentin Topical: 20% Benzocaine Anesthesia: 4% Septocaine (Articaine) w/ 1:200,000 epinephrine Number of Cartridges: 1 Injection Type: Buccal infiltration Confirmed profound anesthesia. Isolation: high speed suction, cotton rolls, and cheek guard Prep: All caries removed, Existing holiness removed, and Preparation finalized Matrix: [place] and wedge Etch: 37% Phosphoric Acid Etch Desensitizer: Gluma Liner/Base: None Nation: [place] Mu-Ism Material: Voco Grandioso Packable Shade: A3 Polished. Occlusion & contacts verified. Patient satisfied with comfort and esthetics. Patient tolerated procedure well. Post-operative instructions were given. Patient departed alert, oriented, and in stable condition. NV: re-eval palatal ulceration NNV: continue restos Turf Farm Worker: Fabiana Tapia Dentist: Greyson Tarango DMD documented in this encounter Plan of Treatment Not on file documented as of this encounter Procedures Procedure Name Priority Date/Time Associated Diagnosis Comments 5 MOD RESIN-BASED COMPOSITE - 3 SURF, POSTERIOR Routine 04/16/2024 9:00 AM EST Dental caries 4 DO RESIN-BASED COMPOSITE - 2 SURF, POSTERIOR Routine 04/16/2024 9:00 AM EST Dental caries CASE PRESENTATION, DETAILED AND EXTENSIVE TREATMENT PLANNING Routine 04/16/2024 9:00 AM EST Dental caries documented in this encounter Visit Diagnoses Diagnosis Dental caries- Primary Unspecified dental caries Periodontal disease Unspecified gingival and periodontal disease documented in this encounter
== END 2024-04-25 10:54 | disposition home or self-care (01) ==
LOC: HO.HAP 10:53
PROVIDERS: Visit Provider Nurse Practitioner Family
DX: Z46.1 Encounter for fitting and adjustment of hearing aid (principal); H90.3 Sensorineural hearing loss, bilateral
CPT/HCPCS: V5266